=== PATIENT | male | born 1950 | race Caucasian/White ===

== ENCOUNTER 2016-10-17 20:14 | Emergency (ER) | payer OTHER ==
[~2016-10-17] VITALS: Ht 180.3 cm; Wt 87.9 kg
[~2016-10-17 20:14] MED LIST: DIAZ-165 PO; HYDRTAB8 PO; META1TAB22 PO
[2016-10-17 20:16] VITALS: TEMP 36.7; Ht 180.3 cm; Wt 87.9 kg
[2016-10-17 21:05] LABS: URINE APPEARANCE CLEAR (CLEAR); URINE BILIRUBIN NEG (NEG); URINE COLOR YELLOW; URINE NITRITE NEG (NEG); URINE SPECIFIC GRAVITY 1.025 (1.000-1.030); UROBILINOGEN NEG (NEG); ZZUR CULT IF INDIC CLEAN CATCH NO
[2016-10-17 21:10] LABS: MANUAL MICROSCOPIC REQUIRED? NO; REVIEW REQ? NO
--- NOTE | 2016-10-17 22:17 | DIAGNOSTIC IMAGING REPORT ---
TESTICULAR ULTRASOUND HISTORY: Testicular pain L testicular pain COMPARISON: None. FINDINGS: Right testis: Maximum dimension 3.7 cm. Normal vascular flow. 6 mm epididymal head cyst. Left testis: 3.8 cm maximum dimension. Normal vascular flow. Normal upper dizziness. Small left-sided varicocele IMPRESSION: Normal testis. Normal vascular flow bilaterally. Small left varicocele. 6 mm right epididymal cyst. Electronically signed by: Erich Mcneill M.D. 10/17/2016 10:15 PM Dictated Date/Time: 10/17/2016 10:14 PM
[2016-10-17] MEDS ORDERED: ALBU18002 INH (22:18)
[2016-10-17] MEDS ORDERED: ATOR-22 PO (22:18)
[2016-10-17] MEDS ORDERED: LEVO-366 PO (22:34)
[2016-10-17] MEDS ORDERED: LEVOFLOXACIN 250 MG TAB PO ONE (22:45)
[2016-10-17 22:57] VITALS: BP 156/95; PULSE 56; O2SAT 96
--- NOTE | 2016-10-18 02:50 | EMERGENCY ROOM VISIT NOTE ---
History Report prepared by Nigel: Miguel Cantu Under the Supervision of: Dr. Elkin Cornejo D.O. First contact with patient: 20:28 Chief Complaint: TESTICULAR PAIN Stated Complaint: PAIN IN LEFT TESTICLE Nursing Triage Summary: Patient states "I have pain in my one testicle." Patient reports left testicle pain that began today. History of Present Illness The patient is a 66 year old male who presents to the Emergency Room with complaints of persistent left testicular pain beginning this afternoon. He notes he was doing things around this house when the pain began. He tried to go to the [facility] but was told to come to the ER as they did not have an US. He denies burning or pain during urination, and notes nothing makes it better or worse. He also denies any trauma. The patient reports that, upon self- inspection, the distal end of the testicle seems more sore than the other parts. He adds that other parts of the testicle may also be sore. The patient notes he had a benign cyst removed about 15 years ago, and is unsure from which testicle. But he denies every having this kind of pain before. His last bowel movement was 2 hours ago. Source of History: patient Onset: this afternoon Position: other (left testicle) Quality: other (testicular pain) Timing: other (persistent) Associated Symptoms: No urinary symptoms Review of Systems See HPI for pertinent positives & negatives. A total of 10 systems reviewed and were otherwise negative. Past Medical & Surgical Medical Problems: (1) History of asthma (2) History of testicular cyst Family History No pertinent family history stated. Social History Smoking Status: Never Smoker Marital Status: Current/Historical Medications Scheduled Atorvastatin (Lipitor), 20 MG PO DAILY Levofloxacin (Levaquin), 500 MG PO DAILY Scheduled PRN Albuterol Sulfate (Proair Respiclick), 2 PUFFS INH Q4H PRN for Wheezing/Prior to Exercise Allergies Coded Allergies: Cephalexin (Verified Adverse Reaction, Intermediate, GI upset, 10/17/16) Sulfamethoxazole w/Trimethoprim (Verified Adverse Reaction, Intermediate, Nausea, 10/17/16) Physical Exam Vital Signs Date Time Temp Pulse Resp B/P Pulse Ox O2 Delivery O2 Flow Rate FiO2 10/17/16 22:57 56 18 156/95 96 10/17/16 20:16 36.7 65 18 182/92 96 Room Air Physical Exam GENERAL: Sitting up in bed, alert, well appearing, well nourished, no distress, non-toxic EYE EXAM: normal conjunctiva OROPHARYNX: no exudate, no erythema, lips, buccal mucosa, and tongue normal and mucous membranes are moist LUNGS: Clear to auscultation. Normal chest wall mechanics HEART: no murmurs, S1 normal and S2 normal ABDOMEN: abdomen soft, non-tender, normo-active bowel sounds, no masses, no rebound or guarding. SKIN: no rashes and no bruising UPPER EXTREMITIES: upper extremities are grossly normal. LOWER EXTREMITIES: No pitting edema. NEURO EXAM: Normal sensorium, cranial nerves II-XII grossly intact, normal speech, no gross weakness of arms, no gross weakness of legs. Gross sensation intact. : Normal external male genitalia. Tenderness over the left posterior testicle. No erythema or swelling. No appreciable hernia. No penile discharge. Cremasteric reflex intact. Medical Decision & Procedures ER Provider Diagnostic Interpretation: Radiology results as stated below per my review and the radiologist's interpretation: TESTICULAR ULTRASOUND FINDINGS: Right testis: Maximum dimension 3.7 cm. Normal vascular flow. 6 mm epididymal head cyst. Left testis: 3.8 cm maximum dimension. Normal vascular flow. Normal upper dizziness. Small left-sided varicocele IMPRESSION: Normal testis. Normal vascular flow bilaterally. Small left varicocele. 6 mm right epididymal cyst. Electronically signed by: Erich Mcneill M.D. 10/17/2016 10:15 PM Dictated Date/Time: 10/17/2016 10:14 PM Laboratory Results Test 10/17/16 20:57 Urine Color YELLOW Urine Appearance CLEAR (CLEAR) Urine pH 5.0 (4.5-7.5) Urine Specific [place] 1.025 (1.000-1.030) Urine Protein NEG (NEG) Urine Glucose (UA) NEG (NEG) Urine Ketones NEG (NEG) Urine Occult Blood NEG (NEG) Urine Nitrite NEG (NEG) Urine Bilirubin NEG (NEG) Urine Urobilinogen NEG (NEG) Urine Leukocyte Esterase NEG (NEG) Urine WBC (Auto) 1-5 /hpf (0-5) Urine RBC (Auto) 0-4 /hpf (0-4) Urine Hyaline Casts (Auto) 1-5 /lpf (0-5) Urine Epithelial Cells (Auto) 5-10 /lpf (0-5) Urine Bacteria (Auto) NEG (NEG) Laboratory results per my review. Medications Administered Medications (Trade) Dose Ordered Sig/Lizz Route Start Time Stop Time Status Last Admin Dose Admin Levofloxacin (Levaquin Tab) 500 mg NOW ONCE PO 10/17/16 22:45 10/17/16 22:46 DC 10/17/16 22:52 500 MG ED Course ED COURSE: Vital signs were reviewed and showed hypertensive. The patients medical record was reviewed The above diagnostic studies were performed and reviewed. ED treatments and interventions as stated above. 2039: The patient was evaluated in room A2. A complete history and physical examination was performed. 2244: Ordered Levofloxacin 500 mg PO. 2299: Upon reevaluation, the patient is doing well.I discussed my findings with the patient and he understands and agrees with the treatment plan. Based on the patients age, coexisting illnesses, exam and lab findings the decision to treat as an outpatient was made. The patient remained stable while under my care. The patient appeared well at the time of discharge. Medical Decision Differentials include UTI, STD, torsion, orchitis, epididymitis, and cancer. Patient is a 58-year-old male who presents the ER for left testicular pain on the posterior aspect which started around noon today. Patient denies any trauma. No fevers. No dysuria urgency or frequency. On exam no personal hernia. Positive cremasterics reflex. He is tender on the posterior aspect of the left testicle. Ultrasound shows good flow without epididymitis or orchitis. Based on patient's symptoms I did elect to treat him for epididymitis. He was given Levaquin as he was tender on the posterior aspect of his left testicle. Patient was discharged follow-up with his primary care doctor. Discussed with Pt concerning signs and symptoms to watch out for. Pt was instructed to follow up with their PCP and discussed with the patient their option to return to the ED at anytime for persistent or worsening symptoms. The appropriate anticipatory guidance and out-patient management, including indications for return to the emergency department, were explained at length to the patient and understood. Impression Primary Impression: Epididymitis Scribe Attestation The scribe's documentation has been prepared under my direction and personally reviewed by me in its entirety. I confirm that the note above accurately reflects all work, treatment, procedures, and medical decision making performed by me. Departure Information Dispostion Home / Self-Care Prescriptions Levofloxacin (Levaquin) 500 Mg Tab 500 MG PO DAILY for 9 Days, TAB Prov: Elkin Cornejo, DO 10/17/16 Referrals No Doctor, Assigned (PCP) Patient Instructions ED Epididymitis, My [facility] Additional Instructions Please follow up with your primary care doctor within 48-72 hours. Any worsening of your symptoms, please return to the ED immediately. This includes fevers greater than 100.4, worsening pain, swelling of the testicle, persistent nausea vomiting, or any other concerning signs or symptoms from your standpoint. Please take Motrin or Tylenol as needed for pain.
== END 2016-10-17 22:59 | disposition home or self-care (01) ==
LOC: C.EDB 20:14 → C.EDA 22:59
DX: N45.1 Epididymitis (principal); J45.909 Unspecified asthma, uncomplicated; Z79.899 Other long term (current) drug therapy; Z88.2 Allergy status to sulfonamides; Z88.8 Allergy status to other drugs, medicaments and biological substances

== ENCOUNTER 2019-01-18 04:58 | Inpatient (IN) ==
--- NOTE | 2018-12-23 09:19 | Anesthesiology Consultation ---
Date of Service December 23, 2018 Assessment & Plan (1) Encounter for pre-operative examination: Chart Review Chart Review: Acceptable Risk for Surgery and Patient seen in Pre Admission Testing Teaching & Discussion Instructed NPO after midnight before surgery, except medications with 15 cc of water. Medication instructions provided according to the PAT guidelines. History Surgery Operation Date: 01/18/19 12:30 Proposed Procedures p Left Knee Arhtroplasty Uni Compartment versus - Roger Montelongo MD s Left Total Knee Replacement - Roger Montelongo MD Height/Weight Height: 5 ft 11 in Weight: 83.6 kg Allergies Allergy/AdvReac Type Severity Reaction Status Date / Time Bactrim AdvReac Intermediate Nausea Verified 10/17/16 22:15 cephalexin AdvReac Unknown GI upset Verified 12/16/18 11:00 sulfamethoxazole AdvReac Unknown Nausea Verified 12/16/18 11:00 trimethoprim AdvReac Unknown Nausea Verified 12/16/18 11:00 SULFA AdvReac Unknown Nausea Uncoded 12/16/18 11:00 Medications Home Medications Medication Instructions Recorded Confirmed Last Taken albuterol sulfate 1 puff INHALATION UD PRN 12/16/18 12/16/18 Unknown atorvastatin 20 mg PO QPM 12/16/18 12/16/18 12/15/18 ibuprofen 600 mg PO UD PRN 12/16/18 12/16/18 Unknown trazodone 25 mg PO HS 12/16/18 12/16/18 12/15/18 Past Medical History Medical History Asthma ONLY WHEN EXCERCISES IN COLD AIR/NO CHRONIC ASTHMA Borderline high cholesterol DJD (degenerative joint disease) of knee Osteoarthritis Exercise / Class Metabolic Activity 1 > 8 Run/Swim/Ski/Tennis (plays tennis weekly) Past Surgical History Surgical History History of arthroscopy of left knee History of arthroscopy of right knee History of colonoscopy History of shoulder surgery RIGHT History of straightening of nasal septum Past Anesthesia History No Hx of Anesthesia Complications and No Family Hx of Anesthesia Complications History of PONV No Hx of PONV and No Hx of Motion Sickness Social History Smoking Status: Never smoker Do You Dip or Chew Tobacco: No Hx Alcohol Use: No substance use type: does not use Review of Systems Pt denies any recent chest pain, shortness of breath, palpitations, cough, fever or URI. Physical Exam Vital Signs BP: 140/74 (*pt states this is elevated for him) P: 57bpm SPO2: 97% RA T: 98.3 F R: 12 ENMT Mouth: + dental restorations (few crowns); no chipped teeth and no loose teeth Thyromental Distance: > or= 3.5 Finger Breadths (3.5) Mallampati Class: I Neck normal visual inspection; neck extension not limited Respiratory normal respiratory effort Auscultation: lungs clear to auscultation bilaterally Cardiovascular Rate/Rhythm: regular rhythm and + bradycardic Heart Sounds: no murmur Vessels: no carotid bruit Extremities: no edema Testing Laboratory Results 12/23/18 09:47 12/23/18 10:18 PT 10.8 Seconds (9.0-12.0) 12/23/18 09:47 INR 1.1 (0.9-1.1) 12/23/18 09:47 APTT 25.2 Seconds (21.0-31.0) 12/23/18 09:47 Blood Type A Positive 12/23/18 09:47 Antibody Screen NEGATIVE 12/23/18 09:47 Electrocardiogram Date: 12/23/18 Findings: + SB @ (55) Rightward axis. No significant change from 2016 EKG. Chest X-Ray Date: 12/23/18 Findings: + NAD
--- NOTE | 2018-12-23 09:25 | PAT Medication Instructions ---
Medication Instructions Date of Service December 23, 2018 Home Medications albuterol sulfate 1 puff INHALATION UD PRN atorvastatin 20 mg PO QPM ibuprofen 600 mg PO UD PRN trazodone 25 mg PO HS ASK your surgeon for instructions ibuprofen 600 mg PO UD PRN Take morning of surgery With a small sip of water, OTHERWISE NOTHING TO EAT OR DRINK AFTER MIDNIGHT: albuterol sulfate 1 puff INHALATION UD PRN (if needed) Take evening before surgery albuterol sulfate 1 puff INHALATION UD PRN (if needed) atorvastatin 20 mg PO QPM trazodone 25 mg PO HS Other Notes If you have any questions please call us at [phone] or [phone] or [phone] or [phone]
--- NOTE | 2018-12-23 10:12 | XRay Report ---
XR chest Pre-admission PA/Lat CLINICAL HISTORY: 68 years-old Male presenting with preoperative assessment, asymptomatic. TECHNIQUE: PA and lateral views of the chest were obtained. COMPARISON: None. FINDINGS: Atherosclerosis of the aortic arch. Cardiac silhouette normal in size. Calcified granuloma suggested in the periphery of the right midlung. Lungs and pleural spaces otherwise clear. Degenerative changes of the thoracic spine. Upper abdomen normal. IMPRESSION: 1. No acute cardiopulmonary disease. Electronically signed by: Iron Stuart M.D. 12/23/2018 10:11 AM
[2018-12-23 12:09] LABS: Basophils # (auto) 0.03 K/uL (0-0.2); Basophils % (auto) 0.7 %; Eosinophils # (auto) 0.14 K/uL (0-0.5); Eosinophils % (auto) 3.2 %; Hematocrit (blood only) 41.2 % (42-52); Hemoglobin 13.5 g/dL (14.0-18.0); Immature Granulocytes # (auto) 0.01 K/uL (0.00-0.02); Immature Granulocytes % (auto) 0.2 %; Lymphocytes % (auto) 20.7 %; Mean Corpuscular Hgb Conc 32.8 g/dL (32-36); Mean Corpuscular Volume 86.9 fL (80-100); Mean Platelet Volume 12.5 fL (7.4-10.4); Monocytes # (auto) 0.42 K/uL (0.11-0.59); Monocytes % (auto) 9.7 %; Neutrophils # (auto) 2.84 K/uL (1.4-6.5); Neutrophils % (auto) 65.5 %; Platelet Count 160 K/uL (130-400); RDW Coefficient of Variation 14.1 % (11.5-14.5); RDW Standard Deviation 44.9 fL (36.4-46.3); Red Blood Count 4.74 M/uL (4.7-6.1); White Blood Count 4.34 K/uL (4.8-10.8)
[2018-12-23 12:17] LABS: BUN Creatinine Ratio 24.1 (10-20); Calcium 9.4 mg/dl (8.5-10.1); Creatinine Clr Calc Pharmacy 82.3 ml/min; Est GFR (African American) 100.4; Est GFR (Non-African American) 86.6; Potassium 4.1 mmol/L (3.5-5.1)
[2018-12-23 12:27] LABS: INR 1.1 (0.9-1.1); Partial Thromboplastin Ratio 0.9; Partial Thromboplastin Time 25.2 Seconds (21.0-31.0); Prothrombin Time 10.8 Seconds (9.0-12.0)
--- NOTE | 2019-01-15 11:06 | History and Physical Report ---
DATE OF ADMISSION: 01/18/2019 CHIEF COMPLAINT: Left medial knee pain and discomfort. 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 Mena for surgical treatment of his left knee. He has got a long history of left knee pain and discomfort that has gradually gotten worse over time. He has been through extensive conservative treatment. He has had both of his knees scoped by Dr. Hebert in the past. Despite conservative care, his knee continues to bother him and limit his activities. He is having difficulty playing tennis, which he really enjoys. Pain is almost all medial. He has had injections which have not helped recently to any significant degree. He really would like to consider proceeding with more definitive intervention. PAST MEDICAL HISTORY: Knee Arthritis. PAST SURGICAL HISTORY: Previous surgeries include: 1. Right shoulder arthroscopy, done by Dr. Ny in 2016. 2. Bilateral knee scopes, by Dr. Hebert. ALLERGIES: None. CURRENT MEDICATIONS: Unspecified statin medicine. SOCIAL HISTORY: A 69-year-old male. Lives here in [place]. He is . Retired. Avid repair specialist. FAMILY HISTORY: Noncontributory. REVIEW OF HISTORY: Negative for diabetes, neurologic problem, vascular problem, bleeding disorders. Denies any chest pain or shortness of breath. No history of DVT or PE. PHYSICAL EXAMINATION: GENERAL: Reveals a healthy, pleasant middle-aged male. Looks to be in excellent health. HEENT: Benign. NECK: Supple, no lymphadenopathy. LUNGS: Clear to auscultation. HEART: Has a regular rate and rhythm. ABDOMEN: Soft, nontender, nondistended. EXTREMITIES: Grossly neurovascularly intact except as follows: Examination of the left knee reveals the patient ambulates independently. He has got slight varus alignment to his knee. He is tender over the medial joint line. Small knee effusion. Range of motion is 5 degrees short of full extension to 135 degrees of flexion. Good endpoint is Yessy, no pivot. No varus or valgus instability. Arlene's is negative for mechanical symptoms, but does create some pain. X-RAYS: X-rays of the left knee reviewed. Shows fairly advanced medial compartment DJD. He has got near complete loss of his medial joint space. The remainder of this looks pretty good and well preserved. 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 He has failed conservative treatment. He would like to proceed with definitive treatment. PLAN: We talked about treatment options including partial versus full knee replacement. After extensive discussion, he would like to proceed with partial knee replacement if possible. If we get in there and the knee is too bad, we will do the full knee replacement. The risks and benefits of partial versus full knee replacement were explained to the patient including but not limited to DVT, PE, , infection, neurological injury, vascular injury, bleeding problem, pain, limited range of motion, stiffness, failure to relieve symptoms, incomplete relief of symptoms, need for further surgery in future, fracture, leg length inequality, nerve palsy, etc. The patient understands and desires to proceed. Informed consent was obtained. I did explain to him that it is possible he could develop arthritis in rest of his knee, may need this converted to a full knee replacement at some point, but our plan is for this to last him at least 10 years.
[2019-01-18] MEDS ORDERED: LR 500ML BOLUS, THEN 15ML/HR IV SCH (06:00)
[2019-01-18] MEDS ORDERED: FAMOTIDINE 20 MG TAB PO SCH (06:00)
[2019-01-18] MEDS ORDERED: BUPIVACAINE LIPOSOME/PF 266 MG, BUPIVACAINE/EPINEPHRINE 50 ML, SODIUM CHLORIDE 0.9% 30 ... INFIL SCH (06:00)
[2019-01-18] MEDS ORDERED: ACETAMINOPHEN 500 MG TAB PO SCH (06:00)
[2019-01-18] MEDS ORDERED: SCOPOLAMINE 1.5 MG TDSY TD SCH (06:00)
[2019-01-18] MEDS ORDERED: VANCOMYCIN HCL 1,250 MG in SODIUM CHLORIDE 0.9% 250 ML IV SCH ×2 (06:00→17:30)
[2019-01-18] MEDS ORDERED: LR 60ML/HR IV SCH (06:00)
[2019-01-18] MEDS ORDERED: METOCLOPRAMIDE HCL 10 MG TABLET PO SCH (06:00)
[2019-01-18] MEDS ORDERED: GABAPENTIN 300 MG CAP PO SCH (06:00)
[2019-01-18] MEDS ORDERED: MIDAZOLAM HCL 1 MG/ML 2ML VIAL ONE ×2 (06:27→07:05)
[2019-01-18] MEDS ORDERED: PROPOFOL IV EMULSION 10 MG/ML 20 ML VIAL IV ONE ×3 (06:27→08:26)
[2019-01-18] MEDS ORDERED: fentaNYL citrate 100 MCG/2 ML VIAL ONE (06:27)
[2019-01-18] MEDS ORDERED: BUPIVACAINE 0.5 % 5 MG/1 ML PF 10ML VIAL ONE (06:30)
[2019-01-18] MEDS ORDERED: ROPIVACAINE 0.5% 5 MG/ML 30 ML VIAL ONE (06:30)
[2019-01-18] MEDS ORDERED: TRANEXAMIC ACID 1,000 MG **IV Intra-op IV SCH (06:30)
[2019-01-18] MEDS ORDERED: BUPIVACAINE 0.25% 30 ML VIAL ONE (06:31)
[2019-01-18] MEDS ORDERED: SODIUM CHLORIDE 0.9% PF 50 ML VIAL ONE (06:31)
[2019-01-18] MEDS ORDERED: BUPIVACAINE LIPOSOME 1.3% 266 MG/20 ML VIAL ONE (06:31)
[2019-01-18] MEDS ORDERED: BACITRACIN INJ 50,000 UNIT VIAL ONE (06:31)
[2019-01-18] MEDS ORDERED: EPINEPHrine INJ 1 MG/ML AMP ONE (06:32)
--- NOTE | 2019-01-18 06:49 | History & Physical Bridge Note ---
Date of Service January 18, 2019 History & Physical Bridge Note I have examined the patient, reviewed the History & Physical and in the interval since the performance of the History & Physical I have noted the following changes of clinical significance: no changes noted
[2019-01-18] MEDS ORDERED: ATROPINE SULFATE 0.1 MG/ML 10ML SYR IV PRN (08:24)
[2019-01-18] MEDS ORDERED: ePHEDrine sulfate 50 MG/ML AMP IV PRN (08:24)
--- NOTE | 2019-01-18 08:52 | Post Operative Brief Note ---
Immediate Post Op Note v1 Date of Surgery January 18, 2019 Pre & Post Diagnosis Operation Date: 01/18/19 07:00 Pre-Op Diagnosis: Left Knee Medial Compartmental Degenerative Joint Disease Post-Op Diagnosis: Left Knee Medial Compartmental Degenerative Joint Disease Procedure Operation Date: 01/18/19 07:00 Actual Procedures p Left Knee Unicompartmental Arthroplasty(Left) - Roger Montelongo MD Surgeon Roger Montelongo MD Licensed Massage Therapist Robert, PAC Estimated Blood Loss 25 Findings Consistent with Post-Op Diagnosis Fluids 600 cc Specimens Left Knee Drains Neal Catheter (A 16 Polish neal catheter was inserted by ANDRIA Lazo, without difficulty, clear yellow urine obtained, output to be monitored by Anesthesia.) Anesthesia Type Spinal MAC Complications none Disposition Accompanied Patient To Recovery: No Disposition: Recovery Room
--- NOTE | 2019-01-18 09:33 | XRay Report ---
XR knee LT 2V routine CLINICAL HISTORY: Surgical Post Op postoperative evaluation COMPARISON: None. DISCUSSION: Anatomic alignment post medial joint hemiarthroplasty. Good contact between metallic pros thetic and underlying bone. Expected soft tissue and postoperative change. IMPRESSION: Anatomic alignment post medial joint hemiarthroplasty. The above report was generated using voice recognition software. It may contain grammatical, syntax or spelling errors. Electronically signed by: Erich Mcneill M.D. 01/18/2019 9:31 AM
--- NOTE | 2019-01-18 09:46 | Operative Report ---
OPERATIVE REPORT DATE OF ADMISSION: 01/18/2019 SURGEON: Roger Montelongo MD POLICE PILOT: ANDRIA Gutierrez PREOPERATIVE DIAGNOSIS: Left knee medial compartment degenerative joint disease. POSTOPERATIVE DIAGNOSIS: Left knee medial compartment degenerative joint disease. PROCEDURE PERFORMED: Left Biomet mobile-bearing [place] partial knee replacement. COMPLICATIONS: None. ESTIMATED BLOOD LOSS: 25 mL. FLUID REPLACEMENT: 600 mL crystalloid fluid replacement. ANESTHESIA: Spinal with adductor canal block. DRAINS: None. SPECIMENS: Left knee sent for pathology. 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 He had both of his knees scoped many years ago. He has done reasonably well until the past several years he developed increased pain and discomfort localized in the medial side of his left knee. He has been through extensive conservative treatment. He failed. X-rays showed moderate to advanced medial compartment arthritis. He elected to proceed with arthroplasty. Treatment options were explained and he elected to proceed with partial knee replacement. OPERATIVE FINDINGS: Operative findings revealed advanced left knee medial compartment arthritis. He had some pretty extensive grade 4 changes in the medial femoral condyle and some focal grade 4 changes of the medial tibial plateau. No major eburnation. The lateral compartment revealed some very mild grade 2 changes and the patellofemoral compartment was fairly well preserved. He had a small knee joint effusion. OPERATIVE IMPLANTS: Operative implants consisted of, 1. Biomet [place] size medium femoral component. 2. Biomet [place] left medial size D tibial tray. 3. A 4-mm mobile-bearing insert. OPERATIVE PROCEDURE: The patient was taken to the operating room, identified and placed on the operating table in supine position. All contact areas were appropriately padded. IV antibiotics were provided by anesthesia team. Spinal anesthetic and adductor canal block had been provided in the holding area. Chauhan catheter was placed in sterile fashion. A left thigh tourniquet was then placed and the left lower extremity was then prepped and draped in usual sterile fashion. Left leg was elevated and exsanguinated with Esmarch and tourniquet was placed at 300 mmHg. An anterior approach to the left knee was then performed through a longitudinal incision centered over the patella. Sharp dissection was carried through subcutaneous tissue down to the level of the extensor mechanism. A medial parapatellar arthrotomy incision was made. Some subperiosteal dissection was carried out medially. Great care was taken to protect the medial collateral ligament. The fat pad was resected. I then examined the lateral compartment and it looked fairly well preserved. The patellofemoral compartment was also well preserved. We elected to proceed with a partial knee replacement. Some osteophytes were taken off the intercondylar notch area. The external tibial alignment jig was then placed in the anterior face of the tibia. The medium-sized spoon was then placed on the distal femur and attached to the tibial cutting guide. The tibial cutting guide was then pinned in place. The proximal tibial cut was made. The tibia was sized to a size D. The attention was then drawn to the femur. A drill was used to enter the intramedullary canal of the femur. The IM edna was placed. The medium femoral component sizing guide was then placed and attached to the intramedullary edna set at 4 mm. I then pinned the femoral templating guide. The holes were drilled for the femoral component. We then removed the guide. The posterior cutting guide was placed and the posterior cut was made. A 0 spigot was used and the distal femur was milled. I then resected the medial meniscus. We then trialed the knee and the 4 feeler gauge fit in flexion and I had great difficulty getting even the one in extension. Therefore, I used the 4 spigot and remilled the distal femur. We then trialed the knee and the 4 feeler gauge fit in flexion and extension. I then irrigated the wound extensively. The cement drill was used to create holes in the distal femur for cement interdigitation. The posterior osteophyte cutting guide was placed and the posterior osteophyte was removed. The milling device was used to create the defect for the anterior femoral component. The tibial tray was then pinned. I then used a toothbrush blade to create the keel for the tibial tray. We then revisited this again as we initially had some trouble placing the trial component. We then trialed the knee. The tibial tray was placed. The femoral component was placed. The 4 insert fit appropriately in flexion and extension. I elected to place these implants. All trial implants were removed. The wound was irrigated with copious amounts of pulsatile lavage solution. I did inject around the knee joint with a total of 100 mL of combination of 20 mL of Exparel, 30 mL of normal saline, 50 mL of 0.25% Marcaine with epinephrine. We did give the patient a gram of tranexamic acid. The single batch of [place] G cement was then mixed. A size medium femoral component, a left medial D tibial tray were then cemented in place. All extraneous cement was removed. The 4 feeler gauge was placed and the knee was brought into about 30 degrees short of full extension until cement hardened. A final cement check was then performed. I irrigated the wound extensively. I then trialed the knee and the 4 insert fit appropriately. We placed a permanent 4 insert. The knee tracked nicely. Attention was then drawn toward closing. The wound was once again irrigated. The extensor mechanism was then closed with #1 Vicryl suture in a [id number] fashion. Subcutaneous tissue was then closed with #2 Dexon suture in a buried interrupted fashion. Skin was closed with skin pearl. Leg was then cleaned, dried, and a sterile dressing of Xeroform, 4 x 4, sterile cast padding, and an Luis bandage were applied. The patient was then transferred to the recovery room in stable condition. The patient tolerated the procedure well with no complication. All needle and sponge counts were correct at the end of the operation. VIDYA
[2019-01-18] MEDS ORDERED: METOCLOPRAMIDE HCL INJ 5 MG/ML 2 ML VIAL IV PRN (09:49)
[2019-01-18] MEDS ORDERED: NALOXONE HCL 0.4 MG/1 ML VIAL/CARP IV PRN (09:49)
[2019-01-18] MEDS ORDERED: TAMSULOSIN HCL 0.4 MG CAP PO PRN (09:49)
[2019-01-18] MEDS ORDERED: BISACODYL 10 MG SUPP PR PRN (09:49)
[2019-01-18] MEDS ORDERED: VANCOMYCIN CONSULT ACTIVE PRN (09:49)
[2019-01-18] MEDS ORDERED: ONDANSETRON INJ 2 MG/ML 2 ML VIAL IV PRN (09:49)
[2019-01-18] MEDS ORDERED: HYDROmorphone INJ 0.5 MG/0.5 ML SYR IV PRN (09:49)
[2019-01-18] MEDS ORDERED: ALUMINUM/MAGNESIUM SUSP 30 ML UDC PO PRN (09:49)
[2019-01-18] MEDS ORDERED: ALBUTEROL HFA 8 GM INHALER INH PRN (09:49)
[2019-01-18] MEDS ORDERED: MAGNESIUM HYDROXIDE SUSP 30 ML UDC PO PRN (09:49)
[2019-01-18] MEDS: SODIUM CHLORIDE 0.9% 1000ML 1,000 ML IV SCH ×2 (10:35→17:25)
[2019-01-18] MEDS: ASPIRIN 81 MG ECTAB PO SCH ×2 (11:10→20:09)
[2019-01-18] MEDS: KETOROLAC TROMETHAMINE 15 MG/ML VIAL IV SCH ×3 (11:10→23:32)
[2019-01-18] MEDS: MULTIVITAMIN TAB PO SCH (11:34)
[2019-01-18] MEDS: DOCUSATE SODIUM 100 MG CAP PO SCH ×2 (11:34→20:09)
[2019-01-18] MEDS: ACETAMINOPHEN 500 MG TAB PO SCH ×2 (13:43→21:08)
[2019-01-18] MEDS ORDERED: TRANEXAMIC ACID 1,000 MG in 0.9 % SODIUM CHLORIDE 100 ML IV SCH (15:00)
[2019-01-18] MEDS ORDERED: CHECK SCOPOLAMINE PATCH PLACEMENT SCH (16:00)
[2019-01-18] MEDS: ASCORBIC ACID 500 MG TAB PO SCH (17:25)
[2019-01-18] MEDS ORDERED: SENNA 8.6 MG TAB PO SCH (21:00)
[2019-01-18] MEDS ORDERED: TRAZODONE HCL 50 MG TAB PO SCH (21:00)
[2019-01-18] MEDS ORDERED: ATORVASTATIN 20 MG TAB PO SCH (21:00)
[2019-01-18] MEDS: TRAMADOL HCL 50 MG TABLET PO PRN (22:08)
[2019-01-19] MEDS: KETOROLAC TROMETHAMINE 15 MG/ML VIAL IV SCH (05:44)
[2019-01-19] MEDS: ACETAMINOPHEN 500 MG TAB PO SCH (05:45)
[2019-01-19] MEDS: TRAMADOL HCL 50 MG TABLET PO PRN (08:35)
[2019-01-19] MEDS: ASCORBIC ACID 500 MG TAB PO SCH (08:35)
[2019-01-19] MEDS: ASPIRIN 81 MG ECTAB PO SCH (08:35)
[2019-01-19] MEDS: DOCUSATE SODIUM 100 MG CAP PO SCH (08:35)
[2019-01-19] MEDS: MULTIVITAMIN TAB PO SCH (08:35)
--- NOTE | 2019-01-19 09:25 | Progress Note ---
DATE: 01/19/2019 SUBJECTIVE: A 69-year-old gentleman postop day 1 from a left partial knee replacement. He is doing pretty well. Having a little bit more pain this morning but manageable. No chest pain or shortness of breath. Not feeling dizzy or lightheaded. OBJECTIVE: VITAL SIGNS: Temperature 36.6. Vital signs stable. PHYSICAL EXAMINATION: GENERAL: Reveals a pleasant, middle-aged male. He is sitting up in bed and reading a book and looks comfortable. LUNGS: Clear to auscultation. HEART: Regular rate and rhythm. ABDOMEN: Soft, nontender, nondistended. EXTREMITIES: Grossly neurovascularly intact except as follows. Examination of the left lower extremity reveals the leg to be well aligned. Dressing is clean, dry, and intact. He can do a good straight leg raise. He can dorsiflex and plantarflex his foot appropriately. He is neurologically intact. ASSESSMENT: 69-year-old gentleman postop day 1 from a left partial knee replacement, doing well. Pain is controlled. He is neurologically intact. PLAN: 1. DVT prophylaxis including thigh-high TEDs, SCDs, and aspirin twice a day. 2. PT/OT. Weight bear as tolerated. Left total knee protocol. 3. Pain control, doing well with current pain regimen. 4. Disposition: Plan to discharge to home with some home health later today after therapy and dressing change.
--- NOTE | 2019-01-19 10:01 | Anesthesiology Progress Note ---
Date of Service January 19, 2019 Anesthesia Post Procedure Vital Signs Vital Signs: Temp Pulse Pulse Resp BP Pulse Ox 01/19/19 06:57 36.6 C 62 20 128/75 95 01/19/19 02:41 36.7 C 61 16 120/74 94 01/18/19 23:14 36.7 C 65 16 156/71 H 97 01/18/19 19:35 36.5 C 52 L 16 162/81 H 98 01/18/19 15:39 36.5 C 47 L 16 142/81 H 97 01/18/19 12:32 48 L 18 137/75 97 01/18/19 11:30 54 L 18 116/66 98 01/18/19 10:38 48 L 18 144/76 H 98 01/18/19 10:07 52 L 18 147/77 H 100 Notes Mental Status: alert / awake / arousable and participated in evaluation Nausea / Vomiting: adequately controlled Pain: adequately controlled Airway Patency, RR, SpO2: stable & adequate BP & HR: stable & adequate Hydration State: stable & adequate Neuraxial Anesthesia: sensory block resolved
--- NOTE | 2019-01-21 14:33 | Discharge Summary ---
ADMITTING PHYSICIAN AND SURGEON: Dr. Roger Montelongo. ADMITTING DIAGNOSIS: Left knee medial compartment degenerative joint disease. SURGERY PERFORMED: Left partial knee replacement. SECONDARY DIAGNOSES: Arthritis. CONSULTS: None obtained. HISTORY AND PHYSICAL EXAMINATION: Well documented in the patient's chart. HOSPITAL COURSE: The patient was admitted on 01/18/2019 underwent partial knee replacement, tolerated the procedure well. There were no complications. He was transferred to the PACU and later to the orthopedic floor for further care. He was given vancomycin for antibiotic prophylaxis, SILVINO stockings, SCDs and aspirin for DVT prophylaxis. Hemoglobin and hematocrit were monitored during his hospital stay and remained stable. His vital signs were monitored during his hospital stay and remained stable. He did not require any blood transfusions. There were no complications. On postoperative day 1, he was tolerating a regular diet, pain was controlled with oral pain medicine. He was participating in physical therapy. Postop day 1, he was discharged home, set up with home health services. He was given printed discharge instructions as well as new prescriptions for extra strength Tylenol, aspirin and tramadol. Continue his home medications, continue physical therapies, weightbearing as tolerated, SILVINO stockings. Follow up approximately 2 weeks postoperatively or sooner if there are any problems or concerns.
== END 2019-01-19 12:18 | disposition home health service (06) | DRG 470 ==
LOC: ASU 04:58 → 3E 08:56